=== PATIENT | female | born 1950 | race Two or more races ===

== ENCOUNTER 2016-11-19 13:50 | Emergency (ER) | payer MEDICARE, MEDICAID ==
[~2016-11-19] VITALS: Ht 162.6 cm; Wt 59.0 kg
[~2016-11-19 13:50] MED LIST: ASPIRIN EC81 MG ORAL; ATORVASTATIN CA20 MG ORAL; CARDIZEM CD120 MG ORAL; METOPROLOL SUCC50 MG ORAL
--- NOTE | 2016-11-19 14:53 | Diagnostic Imaging Report ---
Indications: Low trauma right fifth toe, pain Technique: 3 views right foot Findings: Comparison: None The fifth middle and distal phalanges demonstrate partial bone with lateral displacement relative to the proximal. This is associated with asymmetric widening of the fifth proximal interphalangeal joint. No definite fracture identified. No additional dislocation/joint space widening, soft tissue gas or foreign body, or other acute change identified. First metatarsophalangeal joint narrowed with marginal osteophyte formation. Spurs emanate from plantar and posterior aspects of calcaneus. IMPRESSION: Partial dislocation of right fifth proximal interphalangeal joint area no obvious fracture. First metatarsophalangeal degenerative arthropathy Calcaneal enthesophytes
[2016-11-19] MEDS ORDERED: IBUPROFEN600 MG ORAL (14:55)
[2016-11-19 15:02] VITALS: BP 111/68
--- NOTE | 2016-11-19 15:31 | Emergency Room Report ---
History of Present Illness General Chief Complaint: Lower Extremity Injury Source: Patient Present Illness [facility] The patient is a 66-year-old female presenting with right toe pain. She states that she walked into wheelchair on accident today and felt immediate pain to the right fifth toe. Pain does not radiate. It is a 9/10 dull ache and is worse with touch. She denies previous injury to the area. She denies any other symptoms including numbness or tingling Allergies: Coded Allergies: No Known Allergies (Unverified , 11/18/12) Patient History Past Medical History: see triage record Pertinent Family History: none Now: No Reviewed Nursing Documentation: PMH: Agreed, PSxH: Agreed Nursing Documentation-PMH Hx Cardiac Problems: Yes Hx Hypertension: Yes Hx Cancer: No Hx Gastrointestinal Problems: No Hx Neurological Problems: No Review of Systems All Other Systems: negative except mentioned in HPI Physical Exam Vital Signs Date Time Temp Pulse Resp B/P Pulse Ox O2 Delivery O2 Flow Rate FiO2 11/19/16 13:58 98.1 88 16 128/70 98 Room Air Sp02 EP Interpretation: reviewed, normal General Appearance: no apparent distress, alert, GCS 15, non-toxic Head: normocephalic, atraumatic Eyes: bilateral eye PERRL, bilateral eye normal inspection ENT: hearing grossly normal, normal pharynx, no angioedema, normal voice Musculoskeletal: decreased range of motion - R 5th toe, swelling - R 5th toe, tender - TTP over the R 5th PIPJ Neurologic: alert, oriented x3, responsive, motor strength/tone normal, sensory intact, speech normal Psychiatric: judgement/insight normal, memory normal, mood/affect normal, no suicidal/homicidal ideation Skin: normal color, no rash, warm/dry, well hydrated Procedures Splinting Splinting #1: Consent: Verbal Location: R 5th toe Pre-Made Type: Hand-Made Type: hugo tape Pre-Proc Neuro Vasc Exam: normal Post-Proc Neuro Vasc Exam: normal Patient Tolerated: Well Complications: None Splinting #2: Consent: Verbal Location: R foot Splint: cast shoe Pre-Proc Neuro Vasc Exam: normal Post-Proc Neuro Vasc Exam: normal Patient Tolerated: Well Complications: None Medical Decision Making PA Attestation Dr. corona is my supervising physician. Patient management was discussed with my supervising physician Diagnostic Impression: Primary Impression: Subluxation of right toe Qualified Codes: S93.101A - Unspecified subluxation of right toe(s), initial encounter ER Course The patient is a 66-year-old female presenting with right toe pain Ddx considered include but not limited to sprain/strain, fracture, contusion, dislocation Physical exam: There is tenderness to palpation, swelling to the right fifth PIP joint. Limited active range of motion. X-ray shows a partial dislocation of the fifth PIP joint. No fracture. Hugo tape and cast shoe were placed. The patient is given copies of x-rays and needs to follow up with primary doctor. ER precautions are given Other X-Ray Diagnostic Results Other X-Ray Diagnostic Results : X-Ray ordered: R foot # of Views/Limited Vs Complete: 3 View Indication: Pain EP Interpretation: Yes Interpretation: no fractures, other - partial Dislocation of the R 5th PIPJ Impression: Other - partial dislocation Interpreting ER Provider: DO TRACY Gutierrez Scribe Text I am acting as scribe for my supervising physician. My supervising physician's interpretation of the R foot xrays are there are no fractures. There is a partial dislocation at 5th PIPJ Last Vital Signs Date Time Temp Pulse Resp B/P Pulse Ox O2 Delivery O2 Flow Rate FiO2 11/19/16 15:02 83 18 111/68 100 Room Air 11/19/16 13:58 98.1 Status: improved Disposition: HOME, SELF-CARE Condition: Improved Scripts Ibuprofen* (MOTRIN*) 600 Mg Tablet 600 MG ORAL Q8H Y for For Pain, #30 TAB 0 Refills Prov: LEONOR DAIGLE 11/19/16 Patient Instructions: Tendon Injury Additional Instructions: I discussed my findings with the patient. All questions and concerns have been answered. Treatment and medication compliance have been addressed. I advised the patient that they need to follow up with PMD in 3-5 days. Return to ED if pain remains or worsens, numbness or tingling occurs, new rash is noticed, fever is noticed, or if needed for any reason. Patient verbalized understanding of discharge instructions. LEONOR DAIGLE Nov 19, 2016 15:31
== END 2016-11-19 15:00 | disposition home or self-care (01) ==
LOC: EMR 14:15
DX: S93.134A Subluxation of interphalangeal joint of right lesser toe(s), initial encounter (principal); W22.03XA Walked into furniture, initial encounter; Y92.89 Other specified places as the place of occurrence of the external cause; I10 Essential (primary) hypertension
CPT/HCPCS: 29130; 29540; 99283